=== PATIENT | male | born 1940 ===

== ENCOUNTER 2018-11-17 09:33 | Outpatient (CLI) | payer OTHER ==
[~2018-11-17] VITALS: Ht 170.2 cm; Wt 71.7 kg
== END 2018-11-17 09:45 | disposition home or self-care (01) ==
LOC: OFIC 805 09:33
DX: H91.90 Unspecified hearing loss, unspecified ear (principal); J31.0 Chronic rhinitis; R09.81 Nasal congestion

== ENCOUNTER 2018-12-31 09:03 | Outpatient (CLI) | payer OTHER ==
[~2018-12-31] VITALS: Ht 152.4 cm; Wt 71.7 kg
== END 2018-12-31 09:20 | disposition home or self-care (01) ==
LOC: OFIC 805 09:03
DX: H91.90 Unspecified hearing loss, unspecified ear (principal); J31.0 Chronic rhinitis; R09.81 Nasal congestion

== ENCOUNTER 2024-12-22 11:24 | Emergency (ER) | payer OTHER ==
[~2024-12-22] VITALS: Ht 160 cm; Wt 72.6 kg
[2024-12-22 11:37] VITALS: BP 138/74; O2SAT 95
[2024-12-22] MEDS ORDERED: METROnidazole 500 MG TABLET PO ONE ×2 (13:00→13:22)
[2024-12-22] MEDS ORDERED: TRAMADOL HCL 50 MG TABLET PO ONE (13:00)
== END 2024-12-22 15:22 | disposition home or self-care (01) ==
LOC: ER 11:24
DX: S00.83XA Contusion of other part of head, initial encounter (principal); W18.39XA Other fall on same level, initial encounter; Y93.89 Activity, other specified; Y92.89 Other specified places as the place of occurrence of the external cause; Y99.9 Unspecified external cause status; Z88.6 Allergy status to analgesic agent; Z88.0 Allergy status to penicillin; M85.861 Other specified disorders of bone density and structure, right lower leg; M51.369 Other intervertebral disc degeneration, lumbar region without mention of lumbar back pain or lower extremity pain

== ENCOUNTER 2024-12-30 05:31 | Emergency (ER) | payer OTHER ==
[~2024-12-30] VITALS: Ht 167.6 cm; Wt 70.3 kg
[2024-12-30] MEDS ORDERED: MORPHINE SULFATE 4 MG/ML VIAL IV ONE (08:45)
== END 2024-12-30 14:43 | disposition home or self-care (01) ==
LOC: ER 05:31
DX: M25.561 Pain in right knee (principal); Z88.0 Allergy status to penicillin; Z88.6 Allergy status to analgesic agent; S82.091A Other fracture of right patella, initial encounter for closed fracture; W18.39XA Other fall on same level, initial encounter; Y93.89 Activity, other specified; Y92.018 Other place in single-family (private) house as the place of occurrence of the external cause
CPT/HCPCS: 73560; 73590; 96365; 99283; J2270

== ENCOUNTER 2025-01-05 08:14 | Emergency (ER) | payer OTHER ==
[~2025-01-05] VITALS: Ht 170.2 cm; Wt 68.9 kg
== END 2025-01-05 09:13 | disposition home or self-care (01) ==
LOC: ER 08:14
DX: S82.034A Nondisplaced transverse fracture of right patella, initial encounter for closed fracture (principal); W19.XXXA Unspecified fall, initial encounter; Y93.9 Activity, unspecified; Y92.9 Unspecified place or not applicable; Y99.9 Unspecified external cause status; Z88.6 Allergy status to analgesic agent; Z88.0 Allergy status to penicillin